=== PATIENT | female | born 1965 | race Caucasian/White ===

== ENCOUNTER 2025-06-10 21:54 | Emergency (ER) | payer MEDICARE, MEDICAID ==
[2025-06-10] MEDS ORDERED: Tetracaine 0.5% PF 4 ML BOT ONE (23:06)
[2025-06-10] MEDS ORDERED: Fluorescein Opthalmic Strip ONE (23:06)
== END 2025-06-11 00:03 | disposition home or self-care (01) ==
LOC: CSHERS 21:54
DX: S05.01XA Injury of conjunctiva and corneal abrasion without foreign body, right eye, initial encounter (principal); W44.8XXA Other foreign body entering into or through a natural orifice, initial encounter
CPT/HCPCS: 99283